=== PATIENT | female | born 1985 | race Caucasian/White ===

== ENCOUNTER 2022-07-17 20:58 | Emergency (ER) | payer OTHER ==
[~2022-07-17] VITALS: Ht 165.1 cm; Wt 88.5 kg
[2022-07-17 21:34] VITALS: BP_SYST 107
--- NOTE | 2022-07-17 21:42 | NUR ---
WALKED IN C/O SUBJECTIVE FEVER, BODYACHES AT HOME X TODAY. DENIES RECENT SICK CONTACTS AND A NEG COVID HOME TEST. +SOB. 800MG MOTRIN @193
--- NOTE | 2022-07-17 21:46 | NUR ---
Placed in room 8 . Placed on air sampling and monitoring, blood pressure machine and pulse oximeter. To gown for exam. Side rails up. Report given to DANIELLE PARRA.
--- NOTE | 2022-07-17 21:46 | NUR ---
DR. HARDWICK AWARE OF SEPSIS ALERT
[2022-07-17] MEDS ORDERED: ONDANSETRON HCL 4 MG/2 ML VIAL IVP ONE (23:15)
--- NOTE | 2022-07-17 23:34 | NUR ---
COVID AND FLU SAMPLE COLLECTED AND SENT TO LAB
[2022-07-18] MEDS ORDERED: ONDANSETRON 4 MG ODT TAB PO ONE (00:15)
[2022-07-18] MEDS ORDERED: NACL 0.9% 1,000 ML IV ONE ×2 (00:15→04:15)
[2022-07-18] MEDS ORDERED: MAG HYDROX/AL HYDROX/SIMETH 30 ML, LIDOCAINE VISCOUS 2% 15ML (PO) 15 ML, DICYCLOMINE HC... PO ONE ×3 (01:00)
[2022-07-18 01:52] LABS: BILIRUBIN,URINE NEGATIVE (NEGATIVE); BLOOD, URINE NEGATIVE (NEGATIVE); CLARITY/URINE CLEAR (CLEAR); COLOR,URINE YELLOW (YELLOW); GLUCOSE,URINE NEGATIVE (NEGATIVE); KETONES,URINE TRACE (NEGATIVE); LEUKOCYTE ESTERASE ,URINE NEGATIVE (NEGATIVE); NITRITE, URINE NEGATIVE (NEGATIVE); PROTEIN URINE NEGATIVE (NEGATIVE); UROBILINOGEN,URINE 0.2 (0.2-1.0)
[2022-07-18 02:04] LABS: MEAN CORPUSCULAR VOLUME 91 fL (79.0-98.0); WHITE BLOOD COUNT (AUTO) 10.2 K/uL (4.8-10.8)
[2022-07-18 02:12] LABS: BASOPHILS % (AUTO) 0.2 % (0.0-2.0); EOSINOPHILS % (AUTO) 0.1 % (0.0-4.0); HEMATOCRIT 41.8 % (36-48); HEMOGLOBIN 14.6 g/dL (12.0-16.0); LYMPHOCYTES # (AUTO) 0.9 K/uL (1.0-5.5); LYMPHOCYTES % (AUTO) 9.1 % (20.5-51.5); MEAN CORPUSCULAR HEMOGLOBIN 32 pg (27-31); MEAN CORPUSCULAR HGB CONC 35 % (32-36); MONOCYTES # (AUTO) 0.4 K/uL (0.0-1.0); MONOCYTES % (AUTO) 4.1 % (1.7-9.3); NEUTROPHILS # (AUTO) 8.9 K/uL (1.8-7.7); NEUTROPHILS % (AUTO) 86.5 % (40.0-70.0); PLATELET COUNT (AUTO) 296 K/uL (130-430); RED BLOOD CELL COUNT(AUTO) 4.58 MIL/uL (4.2-6.2); RED CELL DISTRIBUTION WIDTH 12.9 % (9.0-15.0)
[2022-07-18] MEDS ORDERED: METOCLOPRAMIDE HCL 10 MG/2 ML VIAL IVP ONE (02:15)
[2022-07-18 02:30] LABS: CREATININE 0.95 mg/dL (0.55-1.30); POTASSIUM 3.4 mmol/L (3.5-5.1)
[2022-07-18 02:37] LABS: ALBUMIN 3.3 g/dL (3.4-4.8); TOTAL BILIRUBIN 0.6 mg/dL (0.0-1.0)
[2022-07-18 03:26] LABS: BACTERIA,URINE None Seen /HPF (None Seen); RBC,URINE 0-3 /HPF (0-3); YEAST,URINE None Seen /HPF (None Seen)
[2022-07-18 03:27] LABS: MUCUS,URINE None Seen /LPF (None Seen)
[2022-07-18] MEDS ORDERED: ACETAMINOPHEN 500 MG TABLET PO ONE (04:15)
[2022-07-18] MEDS ORDERED: KETOROLAC TROMETHAMINE 30 MG VIAL IVP ONE (04:30)
[2022-07-18] MEDS ORDERED: OMEP40CA20 PO (05:43)
[2022-07-18] MEDS ORDERED: DICY10CA13 PO (05:43)
[2022-07-18] MEDS ORDERED: ANT30 PO (05:43)
[2022-07-18] MEDS ORDERED: ONDA-8 TL (05:43)
[2022-07-18 06:43] VITALS: BP_SYST 96
--- NOTE | 2022-07-18 06:45 | NUR ---
Patient given written and verbal discharge instructions and verbalizes understanding. ER MD discussed with patient the results and treatment provided. Patient in stable condition. ID arm band removed. IV catheter removed intact and dressing applied, no active bleeding. Rx of 3 meds are given. Patient educated on pain management and to follow up with PMD. Pain Scale . Opportunity for questions provided and answered. Medication side effect fact sheet provided. patient is stable to walk as she demostrated.
== END 2022-07-18 06:43 | disposition home or self-care (01) ==
LOC: SED 20:58
DX: B34.9 Viral infection, unspecified (principal); T39.395A Adverse effect of other nonsteroidal anti-inflammatory drugs [NSAID], initial encounter; E86.0 Dehydration; R51.9 Headache, unspecified; R50.9 Fever, unspecified; R11.0 Nausea; Z79.899 Other long term (current) drug therapy; Z20.822 Contact with and (suspected) exposure to COVID-19
CPT/HCPCS: 99285; 96374; 87426; 80053; 81000; 85025; 85379; 87040; 87086; 36415; 83605; 87804 ×2; 71045; 96361; 96375; 81025; J2405; J2001; J2765; J7030